=== PATIENT | female | born 1940 | race Caucasian/White ===

== ENCOUNTER → 2016-10-07 | Outpatient (CLI) | payer OTHER, BC | LOC: FIMAGING 08:09 | DX: Z12.31 Encounter for screening mammogram for malignant neoplasm of breast (principal) | CPT/HCPCS: G0202 ==

== ENCOUNTER → 2017-06-26 | Outpatient (CLI) | payer OTHER, BC | LOC: BHFA 14:45 | PROVIDERS: ATTEND Internal Medicine Cardiovascular Disease | DX: R06.02 Shortness of breath (principal) ==

== ENCOUNTER → 2017-10-08 | Outpatient (CLI) | payer OTHER, BC | LOC: FIMAGING 08:50 | PROVIDERS: ATTEND Physician Assistant | DX: Z12.31 Encounter for screening mammogram for malignant neoplasm of breast (principal) ==

== ENCOUNTER → 2018-10-09 | Outpatient (CLI) | payer OTHER, BC | LOC: FIMAGING 07:58 | PROVIDERS: ATTEND Physician Assistant | DX: Z12.31 Encounter for screening mammogram for malignant neoplasm of breast (principal) ==

== ENCOUNTER → 2018-11-11 | Outpatient (CLI) | payer OTHER, BC | LOC: SUPIMAGING 10:01 | PROVIDERS: ATTEND Nurse Practitioner Family | DX: S52.125A Nondisplaced fracture of head of left radius, initial encounter for closed fracture (principal); S52.135A Nondisplaced fracture of neck of left radius, initial encounter for closed fracture; M79.642 Pain in left hand | CPT/HCPCS: 73080-PN; 73130-PN ==